=== PATIENT | male | born 1965 | race American Indian/Alaskan Native ===

== ENCOUNTER 2019-08-21 14:20 | Inpatient (IN) | payer OTHER ==
--- NOTE | 2019-08-21 17:37 | Cat Scan Report ---
CT ABDOMEN AND PELVIS WITHOUT CONTRAST HISTORY: abd pain. COMPARISON: None. TECHNIQUE: CT images of the abdomen and pelvis were obtained without administration of intravenous co ntrast. All CT scans at this location are performed using CT dose reduction for ALARA by means of au tomated exposure control. FINDINGS: Lungs/bones: Calcified granuloma in the right lung base. Mild degenerative changes in the spine and pelvis with no acute osseous abnormality identified. Abdomen/pelvis: The prostate is enlarged and indents the bladder base. The bladder is distended with small diverticula anteriorly and left of midline, one of which contains tiny stones (for example see image 149 of series 2) suggesting long-standing urinary stasis. There is also mild to moderate bilat eral hydronephrosis. The kidneys otherwise appear unremarkable. There is cholelithiasis without clear evidence of cholecystitis. The liver, spleen, pancreas, adrenal s, and proximal GI tract appear unremarkable. No pelvic free fluid or acute colonic abnormality identified. IMPRESSION: 1. Findings of urinary outlet obstruction as outlined above with grossly enlarged and heterogeneous p rostate indenting the bladder base, distended urinary bladder, and moderate bilateral hydronephrosis. Signer Name: Joshua Christian MD Signed: 08/21/2019 5:33 PM Workstation Name: [id number]
[2019-08-21 18:33] LABS: Basophils % (Auto) 0.2 % (0.0-1.8); Eosinophils # (Auto) 0.1 K/mm3 (0.0-0.4); Eosinophils % (Auto) 0.8 % (0.0-4.3); Hematocrit 43.6 % (35.5-45.6); Hemoglobin 14.9 gm/dl (11.8-15.2); Lymphocytes # (Auto) 0.7 K/mm3 (1.2-5.4); Lymphocytes % (Auto) 9.2 % (13.4-35.0); Mean Corpuscular HGB Conc 34 % (32-34); Mean Corpuscular Volume 89 fl (84-94); Monocytes # (Auto) 0.5 K/mm3 (0.0-0.8); Monocytes % (Auto) 5.7 % (0.0-7.3); Platelet Count 222 K/mm3 (140-440); Red Blood Count 4.91 M/mm3 (3.65-5.03); Red Cell Distribution Width 13.4 % (13.2-15.2)
[2019-08-21 18:58] LABS: Albumin 4.7 g/dL (3.9-5); Calcium 9.6 mg/dL (8.4-10.2)
[2019-08-21] MEDS ORDERED: SODIUM CHLORIDE 0.9% 1000 ML 2,000 ML IV ONE (19:59)
--- NOTE | 2019-08-21 20:03 | Emergency Department Report ---
<BHAVIK FOX - Last Filed: 08/21/19 20:00> ED Abdominal Pain HPI - General Chief Complaint: Abdominal Pain Stated Complaint: BOWEL BLOCKAGE/ABD SWELLING Time Seen by Provider: 08/21/19 20:02 Source: patient Mode of arrival: Ambulatory Limitations: No Limitations - History of Present Illness MD Complaint: abdominal pain - Related Data Allergies Allergy/AdvReac Type Severity Reaction Status Date / Time acetaminophen AdvReac Intermediate Unknown Verified 08/21/19 19:59 [From Tylenol-Codeine #3] codeine AdvReac Intermediate Unknown Verified 08/21/19 19:59 [From Tylenol-Codeine #3] ED Past Medical Hx - Social History Smoking Status: Never Smoker Substance Use Type: Alcohol ED Physical Exam - General Limitations: No Limitations ED Medical Decision Making - Lab Data Result diagrams: 08/21/19 18:23 08/21/19 18:23 - Radiology Data Radiology results: report reviewed Patient: JACKSON GUZMÁN MR#: [id number] : 1965 Acct:[id number] Age/Sex: 54 / M ADM Date: 08/21/19 Loc: ED Attending Dr: Ordering Physician: RAFIQ GUTHRIE Date of Service: 08/21/19 Procedure(s): CT abdomen pelvis wo [facility] Accession Number(s): [id number] cc: RAFIQ GUTHRIE CT ABDOMEN AND PELVIS WITHOUT CONTRAST HISTORY: abd pain. COMPARISON: None. TECHNIQUE: CT images of the abdomen and pelvis were obtained without administration of intravenous contrast. All CT scans at this location are performed using CT dose reduction for ALARA by means of automated exposure control. FINDINGS: Lungs/bones: Calcified granuloma in the right lung base. Mild degenerative changes in the spine and pelvis with no acute osseous abnormality identified. Abdomen/pelvis: The prostate is enlarged and indents the bladder base. The bladder is distended with small diverticula anteriorly and left of midline, one of which contains tiny stones (for exampl e see image 149 of series 2) suggesting long-standing urinary stasis. There is also mild to moderate bilateral hydronephrosis. The kidneys otherwise appear unremarkable. There is cholelithiasis without clear evidence of cholecystitis. The liver, spleen, pancreas, adrenals, and proximal GI tract appear unremarkable. No pelvic free fluid or acute colonic abnormality identified. IMPRESSION: 1. Findings of urinary outlet obstruction as outlined above with grossly enlarged and heterogeneous prostate indenting the bladder base, distended urinary bladder, and moderate bilateral hydronephrosis. Signer Name: Joshua Christian MD Signed: 08/21/2019 5:33 PM Workstation Name: [id number] Transcribed By: GREGORIA Dictated By: Joshua Christian MD Electronically Authenticated By: Joshua Christian MD Signed Date/Time: 08/21/191732 DD/ 29 TD/TT: ED Disposition Clinical Impression: Obstructive nephropathy due to benign prostatic hyperplasia Prostatitis Qualifiers: Prostatitis type: unspecified Qualified Code(s): N41.9 - Inflammatory disease of prostate, unspecified Acute renal failure Qualifiers: Acute renal failure type: unspecified Qualified Code(s): N17.9 - Acute kidney failure, unspecified Hydronephrosis Qualifiers: Hydronephrosis type: other Qualified Code(s): N13.39 - Other hydronephrosis Disposition: OP ADMIT IP TO THIS HOSP Condition: Critical <CHINMAY JOHNSON III - Last Filed: 08/22/19 03:42> ED Abdominal Pain HPI - General Source: patient Mode of arrival: Ambulatory Limitations: No Limitations - History of Present Illness Initial Comments: Patient is a 54-year-old male that presents emergency room with complaints of abdominal pain. Patient states his symptoms started 2 weeks ago. Patient states he thinks he has a bowel obstruction. Patient states he is having difficulties having bowel movements. Patient states he had a bowel movement yes terday. Patient rates his pain as a 8 out of 10. Pain states pain is better with rest and worse with palpation and movement. Patient denies dysuria. Patient states he is able to urinate without difficulties. Patient denies recent travel. Patient denies recent international travel. Patient denies exposure to the novel coronavirus. Patient denies sick contacts. Patient denies fever and chills. Patient denies cough. Patient denies diarrhea. Patient denies coming in contact with anybody with symptoms of the novel coronavirus. Complaint: abdominal pain -: Sudden Location: diffuse Radiation: back Migration to: no migration Quality: aching Consistency: constant Improves With: nothing Worsens With: nothing Associated Symptoms: constipation. denies: nausea, vomiting, diarrhea, fever, chills, dysuria, hematemesis, hematochezia, melena, hematuria, anorexia, syncope ED Review of Systems ROS: Stated complaint: BOWEL BLOCKAGE/ABD SWELLING Other details as noted in HPI Constitutional: denies: chills, fever Eyes: denies: eye pain, eye discharge, vision change ENT: denies: ear pain, throat pain Respiratory: denies: cough, shortness of breath, wheezing Cardiovascular: denies: chest pain, palpitations Endocrine: no symptoms reported Gastrointestinal: abdominal pain, constipation. denies: nausea, diarrhea Genitourinary: denies: urgency, dysuria Musculoskeletal: denies: back pain, joint swelling, arthralgia Skin: denies: rash, lesions Neurological: denies: headache, weakness, paresthesias Psychiatric: denies: anxiety, depression Hematological/Lymphatic: denies: easy bleeding, easy bruising ED Past Medical Hx - Past Medical History Previous Medical History?: Yes - Surgical History Past Surgical History?: No - Family History Family history: no significant - Social History Smoking Status: Never Smoker Substance Use Type: Alcohol ED Physical Exam - General Limitations: No Limitations General appearance: alert, in no apparent distress - Head Head exam: Present: atraumatic, normocephalic - Eye Eye exam: Present: normal appearance - ENT ENT exam: Present: mucous membranes moist - Neck Neck exam: Present: normal inspection - Respiratory Respiratory exam: Present: normal lung sounds bilaterally. Absent: respiratory distress - Cardiovascular Cardiovascular Exam: Present: regular rate, normal rhythm. Absent: systolic murmur, diastolic murmur, rubs, gallop - GI/Abdominal GI/Abdominal exam: Present: soft, distended, tenderness, normal bowel sounds - Rectal Rectal exam: Present: deferred - Extremities Exam Extremities exam: Present: normal inspection - Back Exam Back exam: Present: normal inspection - Neurological Exam Neurological exam: Present: alert, oriented X3 - Psychiatric Psychiatric exam: Present: normal affect, normal mood - Skin Skin exam: Present: warm, dry, intact, normal color. Absent: rash ED Course Vital Signs 08/21/19 08/21/19 08/21/19 14:24 15:42 21:43 Temperature 97.5 F L Pulse Rate 80 Respiratory 20 18 20 Rate Blood Pressure 175/110 Blood Pressure [Left] O2 Sat by Pulse 100 99 Oximetry 08/21/19 22:30 Temperature 98.1 F Pulse Rate 78 Respiratory 16 Rate Blood Pressure Blood Pressure 159/88 [Left] O2 Sat by Pulse 98 Oximetry - Reevaluation(s) Reevaluation #1: Patient initially seen in our fast track area by our physician assistant portfolio manager. Care was transferred to wi. I assessed the patient in room 37. Initial exam done. Patient found to have generalized tenderness to the abdomen along with a palpable bladder. 08/21/19 20:02 Reevaluation #2: I did a bedside ultrasound which showed a dilated bladder. Patient voided just prior to ultrasound. Cysto cart order. 08/21/19 21:01 Reevaluation #3: Patient had an 18 Jamaican coud placed with minimal resistance. Patient had a liter out within 1 minute. Patient clamped off we will open the Fraser back up and approximately 30 minutes to prevent bladder spasm. Patient given 1 mg of Dilaudid for discomfort. 08/21/19 21:23 Reevaluation #4: Patient drained 2500 cc of clear urine. Patient has finished 2 L of normal saline bolus and the nurse has hung his third liter. Patient states the pain has improved. Patient's abdomen is now soft and nondistended. I discussed all results with patient. I discussed plan of care with patient. Patient agrees with plan of care and admission. Patient to be admitted to the hospitalist service. 08/21/19 21:33 - Consultations Consultation #1: Hospitalist consulted for admission. Hospitalist to admit patient. Bridge orders placed. 08/21/19 21:33 - Procedure Description Procedures done: Ultrasound done. A post void ultrasound done and it shows a dilated bladder. Patient will have a Fraser placed. I have ordered a cystoscopy cart. - Catheter Insertion (Urinary) Indications: to alleviate urinary retention Prophylactic Antibiotics Given: Yes Bladder Scan/US before Catherization: Yes Preparation: Providone-Iodine Type of Catheter Inserted: coude tip Catheter Jamaican Size: 18 Catheter Balloon Size (mls): 10 Topical Anesthesia Used: No Results: successfully catherized-immediate flow, ultrasound used for placement verification, urine sent for UA/ C&S Patient Tolerated Procedure: well, no complications Complications: none ED Medical Decision Making - Lab Data Result diagrams: 08/22/19 01:29 08/22/19 01:29 - Radiology Data Radiology results: report reviewed, image reviewed - Medical Decision Making Patient is a 54-year-old male that presents emergency room with complaints of abdominal pain x2 weeks. Patient's stated he was constipated and believes he has a obstruction. Patient initially evaluated by our midlevel. Patient care was then transferred to wi early in his ER stay. Patient evaluated and found to have a palpable bladder on exam. Patient while in ER voided without difficulties and had a ultrasound done which showed a dilated bladder. Patient then had a urinary catheter placed with an 18 Jamaican coud under ultrasound and patient had an immediate drainage of a liter, the Fraser was clamped for period of time to prevent bladder spasm. Patient was given Dilaudid for discomfort. Patient given IV fluids. Patient had labs done which showed acute renal failure. Patient has no past medical history or history of kidney disease. Patient CT was done and reviewed. Patient CT showed bilateral hydronephrosis from with a urinary bladder outlet obstruction. Because of the CT findings the patient had a urinary catheter placed. - Differential Diagnosis obstructive nephropathy 2/2 BPH, prostatitis, abd pain.. sbo Critical Care Time: Yes Critical care time in (mins) excluding proc time.: 45 Critical care attestation.: If time is entered above; I have spent that time in minutes in the direct care of this critically ill patient, excluding procedure time. Critical Care Time: 45 minutes ED Disposition Is pt being admited?: Yes Does the pt Need Aspirin: No Time of Disposition: 21:28
[2019-08-21] MEDS ORDERED: CEFEPIME/NS 2 GM/100 ML 2 GM/100 ML BAG IV ONE (20:33)
[2019-08-21 20:47] LABS: Bilirubin,Urine NEG (Negative); Blood,Urine NEG (Negative); Color,Urine Yellow (Yellow); Protein,Urine <15 mg/dL mg/dL (Negative); Urobilinogen,Urine < 2.0 mg/dL (<2.0)
[2019-08-21] MEDS ORDERED: HYDROmorphone 1 MG/1 ML INJ ONE (21:18)
[2019-08-21] MEDS ORDERED: HYDROmorphone 1 MG/1 ML INJ IV ONE (21:23)
[2019-08-21] MEDS ORDERED: SODIUM CHLORIDE 0.9% 1000 ML 1,000 ML ONE (22:46)
--- NOTE | 2019-08-21 23:43 | History and Physical Report ---
History of Present Illness Date of examination: 08/21/19 Date of admission: 08/21/19 21:30 Chief complaint: Lower abdominal pain for 2 weeks History of present illness: Patient 54-year-old male comes in for lower abdominal pain of 2 weeks duration. No significant past medical history. Is having problem with micturition. Unable to urinate for the last 48 hours. Patient also says that he is constipated. No bowel movement. No fever or chills. No exposure to coronavirus patients. No cough or fever. Abdominal pain is about 6 on a scale of 1-10 dull to sharp. Patient was told that he had a high PSA by his PCP and was asked to follow-up with urology but never followed with urology. Patient is not on Flomax or Proscar. He was not prescribed any Flomax or Proscar by his PCP. The PCP was relying on his follow-up with urology which he was noncompliant. Past Medical History hypertension but not on any medicines Surgical History Past Surgical History?: No Family History Family history: no significant Social History Smoking Status: Never Smoker Substance Use Type: Alcohol Review of Systems ROS: Constitutional no weight loss or weight gain no fever or chills HEENT no sore throat no post nasal drip no diplopia Neck no neck stiffness no lymph gland enlargement Chest and lungs no shortness of breath cough or wheezing CVS no chest pain no diaphoresis no palpitations GI no nausea no vomiting no diarrhea, constipation present. Genitourinary system no abdominal pain. No urination. Musculoskeletal system no muscle pains no joint pains [employer]GET[employer] no syncope no seizures Skin no rash no itching Psychiatric no depression no homicidal or suicidal tendencies Hematologic no lymphedema or bruising Endocrine no polydipsia no polyuria no cold intolerance no heat intolerance Medications and Allergies Allergies Allergy/AdvReac Type Severity Reaction Status Date / Time acetaminophen AdvReac Intermediate Unknown Verified 08/21/19 19:59 [From Tylenol-Codeine #3] codeine AdvReac Intermediate Unknown Verified 08/21/19 19:59 [From Tylenol-Codeine #3] Exam - Constitutional Vitals: Temp Pulse Resp BP Pulse Ox 98.1 F 78 16 159/88 98 08/21/19 22:30 08/21/19 22:30 08/21/19 22:30 08/21/19 22:30 08/21/19 22:30 General appearance: Present: no acute distress, well-nourished - EENT Eyes: Present: PERRL ENT: hearing intact, clear oral mucosa - Neck Neck: Present: supple, normal ROM - Respiratory Respiratory effort: normal Respiratory: bilateral: CTA - Cardiovascular Heart rate: 78 Heart Sounds: Present: S1 & S2. Absent: rub, click - Extremities Extremities: no ischemia, pulses intact, pulses symmetrical, No edema Peripheral Pulses: within normal limits - Abdominal General gastrointestinal: Present: soft, tender, distended (Tender suprapubic region), normal bowel sounds Male genitourinary: Present: normal - Rectal Rectal Exam: stool brown - Integumentary Integumentary: Present: clear, warm, dry - Musculoskeletal Musculoskeletal: gait normal, strength equal bilaterally - Psychiatric Psychiatric: appropriate mood/affect, intact judgment & insight - Neurologic Neurologic: CNII-XII intact, moves all extremities - Allied Health Allied health notes reviewed: nursing, case management Results - Labs CBC & Chem 7: 08/22/19 01:29 08/22/19 01:29 Labs: Laboratory Last Values WBC 8.1 K/mm3 (4.5-11.0) 08/21/19 18:23 RBC 4.91 M/mm3 (3.65-5.03) 08/21/19 18:23 Hgb 14.9 gm/dl (11.8-15.2) 08/21/19 18:23 Hct 43.6 % (35.5-45.6) 08/21/19 18:23 MCV 89 fl (84-94) 08/21/19 18:23 MCH 30 pg (28-32) 08/21/19 18:23 MCHC 34 % (32-34) 08/21/19 18:23 RDW 13.4 % (13.2-15.2) 08/21/19 18:23 Plt Count 222 K/mm3 (140-440) 08/21/19 18:23 Lymph % (Auto) 9.2 % (13.4-35.0) L 08/21/19 18:23 Tillman % (Auto) 5.7 % (0.0-7.3) 08/21/19 18:23 Eos % (Auto) 0.8 % (0.0-4.3) 08/21/19 18:23 Baso % (Auto) 0.2 % (0.0-1.8) 08/21/19 18:23 Lymph # 0.7 K/mm3 (1.2-5.4) L 08/21/19 18:23 Tillman # 0.5 K/mm3 (0.0-0.8) 08/21/19 18:23 Eos # 0.1 K/mm3 (0.0-0.4) 08/21/19 18: Baso # 0.0 K/mm3 (0.0-0.1) 08/21/19 18:23 Seg Neutrophils % 84.1 % (40.0-70.0) H 08/21/19 18:23 Seg Neutrophils # 6.8 K/mm3 (1.8-7.7) 08/21/19 18:23 Sodium 138 mmol/L (137-145) 08/21/19 18:23 Potassium 4.4 mmol/L (3.6-5.0) 08/21/19 18:23 Chloride 100.3 mmol/L (98-107) 08/21/19 18:23 Carbon Dioxide 21 mmol/L (22-30) L 08/21/19 18:23 Anion Gap 21 mmol/L 08/21/19 18:23 BUN 33 mg/dL (9-20) H 08/21/19 18:23 Creatinine 5.9 mg/dL (0.8-1.5) H 08/21/19 18:23 Estimated GFR 12 ml/min 08/21/19 18:23 BUN/Creatinine Ratio 6 % 08/21/19 18:23 Glucose 110 mg/dL (75-100) H 08/21/19 18:23 Calcium 9.6 mg/dL (8.4-10.2) 08/21/19 18:23 Total Bilirubin 0.40 mg/dL (0.1-1.2) 08/21/19 18:23 AST 23 units/L (5-40) 08/21/19 18:23 ALT 20 units/L (7-56) 08/21/19 18:23 Alkaline Phosphatase 59 units/L (35-129) 08/21/19 18:23 Total Protein 7.7 g/dL (6.3-8.2) 08/21/19 18: Albumin 4.7 g/dL (3.9-5) 08/21/19 18:23 Albumin/Globulin Ratio 1.6 % 08/21/19 18:23 Urine Color Yellow (Yellow) 08/21/19 20:30 Urine Turbidity Clear (Clear) 08/21/19 20:30 Urine pH 5.0 (5.0-7.0) 08/21/19 20:30 Ur Specific [place] 1.009 (1.003-1.030) 08/21/19 20:30 Urine Protein <15 mg/dl mg/dL (Negative) 08/21/19 20:30 Urine Glucose (UA) Neg mg/dL (Negative) 08/21/19 20:30 Urine Ketones Neg mg/dL (Negative) 08/21/19 20:30 Urine Blood Neg (Negative) 08/21/19 20:30 Urine Nitrite Neg (Negative) 08/21/19 20:30 Urine Bilirubin Neg (Negative) 08/21/19 20:30 Urine Urobilinogen < 2.0 mg/dL (<2.0) 08/21/19 20:30 Ur Leukocyte Esterase Neg (Negative) 08/21/19 20:30 Urine WBC (Auto) 5.0 /HPF (0.0-6.0) 08/21/19 20:30 Urine RBC (Auto) 1.0 /HPF (0.0-6.0) 08/21/19 20:30 U Epithel Cells (Auto) < 1.0 /HPF (0-13.0) 08/21/19 20:30 Short CBC 08/21/19 Range/Units 18:23 WBC 8.1 (4.5-11.0) K/mm3 Hgb 14.9 (11.8-15.2) gm/dl Hct 43.6 (35.5-45.6) % Plt Count 222 (140-440) K/mm3 BMP 08/21/19 18:23 Sodium 138 Potassium 4.4 Chloride 100.3 Carbon Dioxide 21 L BUN 33 H Creatinine 5.9 H Glucose 110 H Calcium 9.6 Liver Function 08/21/19 Range/Units 18:23 Total Bilirubin 0.40 (0.1-1.2) mg/dL AST 23 (5-40) units/L ALT 20 (7-56) units/L Alkaline Phosphatase 59 (35-129) units/L Albumin 4.7 (3.9-5) g/dL Urine 08/21/19 Range/Units 20:30 Urine Color Yellow (Yellow) Urine pH 5.0 (5.0-7.0) Ur Specific [place] 1.009 (1.003-1.030) Urine Protein <15 mg/dl (Negative) mg/dL Urine Glucose (UA) Neg (Negative) mg/dL - Imaging and Cardiology CT scan - abdomen: report reviewed Imaging and Cardiology: CT abdomen Abdomen/pelvis: The prostate is enlarged and indents the bladder base. The bladder is distended with small diverticula anteriorly and left of midline, one of which contains tiny stones (for exampl e see image 149 of series 2) suggesting long-standing urinary stasis. There is also mild to moderate bilateral hydronephrosis. The kidneys otherwise appear unremarkable. There is cholelithiasis without clear evidence of cholecystitis. The liver, spleen, pancreas, adrenals, and proximal GI tract appear unremarkable. No pelvic free fluid or acute colonic abnormality identified. IMPRESSION: 1. Findings of urinary outlet obstruction as outlined above with grossly enlarged and heterogeneous prostate indenting the bladder base, distended urinary bladder, and moderate bilateral hydronephrosis. Signer Name: Joshua Christian MD Signed: 08/21/2019 5:33 PM Workstation Name: [id number] Fraser/IV: IV Catheter Type [Left Distal INT / Saline Lock Port Antecubital] Assessment and Plan Advance Directives: Yes (Full code) VTE prophylaxis?: Chemical Plan of care discussed with patient/family: Yes - Patient Problems (1) Acute kidney injury Current Visit: Yes Status: Acute Plan to address problem: Secondary to outlet obstruction due to prostate enlargement which can be malignancy or benign prostate enlargement PSA ordered Cardiac catheter could be inserted IV fluids for now Nephrology consult ATN (2) Obstructive nephropathy due to benign prostatic hyperplasia Current Visit: Yes Status: Acute Plan to address problem: Secondary to BPH versus benign prostate hypertrophy Urology consult requested (3) BPH (benign prostatic hyperplasia) Current Visit: Yes Status: Chronic Qualifiers: Lower urinary tract symptom presence: symptoms present Lower urinary tract symptom detail: straining on urination Qualified Code(s): N40.1 - Benign prostatic hyperplasia with lower urinary tract symptoms; R39.16 - Straining to void Plan to address problem: Patient has symptoms of BPH for a long time but did not seek attention with a urologist (4) DVT prophylaxis Current Visit: Yes Status: Acute Plan to address problem: On heparin and GI prophylaxis
[2019-08-22] MEDS ORDERED: ONDANSETRON 4 MG/2 ML INJ IV PRN (00:10)
[2019-08-22] MEDS ORDERED: HYDROmorphone 1 MG/1 ML INJ IV PRN (00:10)
[2019-08-22] MEDS ORDERED: oxyCODONE /ACETAMINOPHEN 5-325MG TAB PO PRN (00:10)
[2019-08-22] MEDS ORDERED: ACETAMINOPHEN 325 MG TAB PO PRN (00:10)
[2019-08-22] MEDS ORDERED: D5W/0.9% NACL 1,000 ML IV SCH (01:00)
[2019-08-22 01:40] LABS: Basophils % (Auto) 0.2 % (0.0-1.8); Eosinophils # (Auto) 0.1 K/mm3 (0.0-0.4); Eosinophils % (Auto) 0.9 % (0.0-4.3); Hematocrit 42.1 % (35.5-45.6); Hemoglobin 14.4 gm/dl (11.8-15.2); Lymphocytes # (Auto) 0.9 K/mm3 (1.2-5.4); Lymphocytes % (Auto) 14.3 % (13.4-35.0); Mean Corpuscular HGB Conc 34 % (32-34); Mean Corpuscular Volume 88 fl (84-94); Monocytes # (Auto) 0.5 K/mm3 (0.0-0.8); Monocytes % (Auto) 7.6 % (0.0-7.3); Platelet Count 206 K/mm3 (140-440); Red Blood Count 4.78 M/mm3 (3.65-5.03); Red Cell Distribution Width 13.1 % (13.2-15.2)
[2019-08-22 02:03] LABS: Albumin 4.4 g/dL (3.9-5); Calcium 9.1 mg/dL (8.4-10.2)
[2019-08-22] MEDS ORDERED: FAMOTIDINE 20 MG/2 ML INJ IV SCH (10:00)
--- NOTE | 2019-08-22 10:24 | Consultation ---
History of Present Illness - Reason for Consult Consult date: 08/22/19 - History of Present Illness Lower abdominal pain for 2 weeks History of present illness: Patient 54-year-old male comes in for lower abdominal pain of 2 weeks duration. No significant past medical history. Is having problem with micturition. Unable to urinate for the last 48 hours. Patient also says that he is constipated. No bowel movement. No fever or chills. No exposure to coronavirus patients. No cough or fever. Abdominal pain is about 6 on a scale of 1-10 dull to sharp. Patient was told that he had a high PSA by his PCP and was asked to follow-up with urology but never followed with urology. Patient is not on Flomax or Proscar. He was not prescribed any Flomax or Proscar by his PCP. The PCP was relying on his follow-up with urology which he was noncompliant. PCP-- Dr. Vanna Moe CT- retention, mild hydronephrosis Fraser now nurse states draining and no pain BPH RETENTION Spoke with pt Home with Fraser -- big bag & leg bag Flomax 1qd - f/u 2wks-- fill / flow reviewed chart via portal & discussed with pt, nurse, & Dr. Gurrola Medications and Allergies Allergies Allergy/AdvReac Type Severity Reaction Status Date / Time acetaminophen AdvReac Intermediate Unknown Verified 08/21/19 19:59 [From Tylenol-Codeine #3] codeine AdvReac Intermediate Unknown Verified 08/21/19 19:59 [From Tylenol-Codeine #3] Active Meds: Active Medications Acetaminophen (Tylenol) 650 mg PO Q4H PRN PRN Reason: Pain MILD(1-3)/Fever >100.5/NEWELL Famotidine (Pepcid) 20 mg IV QAM [facility] Last Admin: 08/22/19 09:35 Dose: 20 mg Documented by: Hydromorphone HCl (Dilaudid) 0.5 mg IV Q3H PRN PRN Reason: Pain , Severe (7-10) Dextrose/Sodium Chloride (D5ns) 1,000 mls @ 100 mls/hr IV DIRECT [facility] Last Admin: 08/22/19 04:51 Dose: 100 mls/hr Documented by: Ondansetron HCl (Zofran) 4 mg IV Q8H PRN PRN Reason: Nausea And Vomiting Oxycodone/Acetaminophen (Percocet 5/325) 1 tab PO Q6H PRN PRN Reason: Pain, Moderate (4-6) Sodium Chloride (Sodium Chloride Flush Syringe 10 Ml) 10 ml IV BID [facility] Last Admin: 08/22/19 09:36 Dose: 10 ml Documented by: Sodium Chloride (Sodium Chloride Flush Syringe 10 Ml) 10 ml IV PRN PRN PRN Reason: LINE FLUSH Exam - Constitutional Vitals: Temp Pulse Resp BP Pulse Ox 98.1 F 72 18 143/89 100 08/22/19 08:14 08/22/19 08:14 08/22/19 08:14 08/22/19 08:14 08/22/19 08:14 Results - Labs CBC & Chem 7: 08/22/19 01:29 08/22/19 01:29 Labs: Abnormal lab results 08/21/19 08/21/19 08/22/19 Range/Units 18:23 18:23 01:29 RDW 13.1 L (13.2-15.2) % Lymph % (Auto) 9.2 L (13.4-35.0) % Emanuel % (Auto) 7.6 H (0.0-7.3) % Lymph # 0.7 L 0.9 L (1.2-5.4) K/mm3 Seg Neutrophils % 84.1 H 77.0 H (40.0-70.0) % Chloride (98-107) mmol/L Carbon Dioxide 21 L (22-30) mmol/L BUN 33 H (9-20) mg/dL Creatinine 5.9 H (0.8-1.5) mg/dL Glucose 110 H (75-100) mg/dL Prostate Specific Ag (0.00-4.00) ng/mL 08/22/19 08/22/19 Range/Units 01:29 01:29 RDW (13.2-15.2) % Lymph % (Auto) (13.4-35.0) % Emanuel % (Auto) (0.0-7.3) % Lymph # (1.2-5.4) K/mm3 Seg Neutrophils % (40.0-70.0) % Chloride 108.0 H (98-107) mmol/L Carbon Dioxide (22-30) mmol/L BUN 31 H (9-20) mg/dL Creatinine 4.7 H (0.8-1.5) mg/dL Glucose 104 H (75-100) mg/dL Prostate Specific Ag 98.03 H (0.00-4.00) ng/mL
--- NOTE | 2019-08-22 10:31 | Discharge Summary ---
Providers - Providers Date of Admission: 08/21/19 21:30 Date of discharge: 08/22/19 Attending physician: ROSHNI STEPHENS 08/22/19 00:10 Consult to Physician [CONS] Routine Comment: Consulting Provider: PAMELA CAMPBELL Physician Instructions: Reason For Exam: Acute renal failure 08/22/19 00:18 Consult to Physician [CONS] Routine Comment: Consulting Provider: OBEY TAMEZ Physician Instructions: Reason For Exam: Bladder outlet obstruction Primary care physician: HAZEL NOVOA Hospitalization Condition: Good Hospital course: 54-year-old male presents with lower abdominal pain x2 weeks unable to void. Constipated. Patient had elevated PSA was scheduled to follow-up with urologist did not follow-up. Upon presentation CT scan showed enlarged prostate bladder outlet obstruction. Patient renal function was compromised with BUN/creatinine 33/5.9. Corrected significantly with catheter placement. Patient stable for discharge. Leave catheter in follow-up with Dr. Tamez in 2 weeks. Disposition: - TO HOME OR SELFCARE - Discharge Diagnoses (1) Acute kidney injury Status: Acute Comment: Acute kidney injury secondary to obstructive uropathy. Still will also need to rule out malignancy with elevated PSA. Patient to keep Fraser catheter in. (2) Hydronephrosis Status: Acute Qualifiers: Hydronephrosis type: other Qualified Code(s): N13.39 - Other hydronephrosis Comment: Secondary to BPH. Patient be given Flomax. Antibiotics discharge follow-up urinary catheter Dr. Tamez 2 weeks. (3) Obstructive nephropathy due to benign prostatic hyperplasia Status: Acute Core Measure Documentation - Palliative Care Palliative Care/ Comfort Measures: Not Applicable - Core Measures Any of the following diagnoses?: none Exam - Constitutional Vitals: Temp Pulse Resp BP Pulse Ox 98.1 F 72 18 143/89 100 08/22/19 08:14 08/22/19 08:14 08/22/19 08:14 08/22/19 08:14 08/22/19 08:14 General appearance: Present: no acute distress, well-nourished - EENT Eyes: Present: PERRL ENT: hearing intact, clear oral mucosa - Neck Neck: Present: supple, normal ROM - Respiratory Respiratory effort: normal Respiratory: bilateral: CTA - Cardiovascular Heart Sounds: Present: S1 & S2. Absent: rub, click - Extremities Extremities: pulses symmetrical, No edema Peripheral Pulses: within normal limits - Abdominal General gastrointestinal: Present: soft, non-tender, non-distended, normal bowel sounds Male genitourinary: Present: normal - Integumentary Integumentary: Present: clear, warm, dry - Musculoskeletal Musculoskeletal: gait normal, strength equal bilaterally - Psychiatric Psychiatric: appropriate mood/affect, intact judgment & insight - Neurologic Neurologic: CNII-XII intact, moves all extremities Plan Activity: no restrictions Weight Bearing Status: Full Weight Bearing Diet: regular Follow up with: HAZEL NOVOA MD [Primary Care Provider] - 3-5 Days Prescriptions: oxyCODONE /ACETAMINOPHEN [Percocet 5/325 mg] 1 tab PO Q6H PRN #14 tablet PRN Reason: Pain, Moderate (4-6)
[2019-08-22 13:06] VITALS: BP 150/80
--- NOTE | 2019-08-22 15:12 | Consultation ---
History of Present Illness - Reason for Consult Consult date: 08/22/19 acute renal failure Requesting physician: ROSHNI STEPHENS - History of Present Illness 54-year-old male with a history of hypertension increased PSA who is seeing Dr. Tamez. Presents on account of 2-week history of lower abdominal pain with constipation. Patient also admits to some nausea and vomiting. He admitted to urinary hesitancy and poor stream. No dysuria or hematuria. On presentation, BUN/creatinine were elevated at 33/5.9 mg/dL. I am asked consulted to assist with managing this. CT scan showed enlarged prostate with bladder outlet obstruction. Fraser's catheter was inserted with more than 900 mils of urine obtained. Urology was consulted and patient had a Fraser catheter inserted. Plan is to follow-up with urologist as an outpatient in 2 weeks. Past History Past Medical History: hypertension Past Surgical History: hernia repair (as a child) Social history: Lives alone, other (driver operator). denies: smoking, alcohol abuse, prescription drug abuse, IV drug use Family history: cancer (Mother of pancreatic cancer at age 83.), other (Father of complications of emphysema in his 60s.) Medications and Allergies Allergies Allergy/AdvReac Type Severity Reaction Status Date / Time acetaminophen AdvReac Intermediate Unknown Verified 08/21/19 19:59 [From Tylenol-Codeine #3] codeine AdvReac Intermediate Unknown Verified 08/21/19 19:59 [From Tylenol-Codeine #3] Home Medications Medication Instructions Recorded Confirmed Last Taken Type Tamsulosin [Flomax] 0.4 mg PO QDAY #14 cap 08/22/19 Unknown Rx levoFLOXacin [Levaquin TAB] 500 mg PO QDAY #7 tablet 08/22/19 Unknown Rx oxyCODONE /ACETAMINOPHEN [Percocet 1 tab PO Q6H PRN #14 tablet 08/22/19 Unknown Rx 5/325 mg] Review of Systems All systems: negative (Constitutional: no fever admits tor chills. No anorexia or weight loss. HEENT: No sore throat but admits tosinus drainage no hearing or vision impairment . Cardiovascular: No chest pain, shortness of breath, palpitations, lower extremity swelling or dizziness. Respiratory: No cough, sp utum, shortness of breath, hemoptysis or wheezing. Gastrointestinal: No nausea, vomiting, diarrhea, aDMITS to abdominal pain and constipation, hematemesis or melena. Genitourinary: No frequency urgency dysuria or hematuria. hematologic: No abnormal bleeding or bruising. Developed hematuria after Fraser catheter was inserted integumentary: no pruritus or rash. Neurological: Admits to dizzines and headache no focal weakness or numbness, no syncope or seizures. Musculoskeletal: Admits to joint pains and stiffness. Psychiatry: no anxiety or depression) Exam - Vital Signs Vital signs: Vital Signs Temp Pulse Resp BP Pulse Ox 97.5 F L 80 20 175/110 100 08/21/19 14:24 08/21/19 14:24 08/21/19 14:24 08/21/19 14:24 08/21/19 14:24 - Physical Exam Narrative exam: Middle-aged -Nepalese male lying in bed in no acute distress HEENT: NCAT, pink oral mucous membrane Neck: Supple, no venous distention CVS: S1S2 RRR with no murmur, rub or gallop Chest: Clear to auscultation Abdomen: Protuberant, soft, nontender, no organomegaly, bowel sounds are present Extremities: No edema Neuro: Awake, alert no focal deficits Results - Lab Results 08/22/19 01:29 08/22/19 01:29 Most recent lab results Calcium 9.1 mg/dL (8.4-10.2) 08/22/19 01:29 Assessment and Plan - Patient Problems (1) Acute kidney injury Status: Acute Plan to address problem: Acute kidney injury secondary to obstructive uropathy secondary to enlarged prostate. Status post relief of obstruction. Kidney function is improving. Patient is being discharged home. Will need to follow-up labs on Saturday this week and schedule Teleisit to see me next week. (2) Chronic kidney disease, unspecified Status: Acute Plan to address problem: Suspect patient has baseline chronic kidney disease stage III of 4. 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 Old records are not available for review. Will get records as an outpatient and follow-up kidney function. (3) Hypertensive chronic kidney disease with stage 1 through stage 4 chronic kidney disease, or unspecified chronic kidney disease Status: Acute Plan to address problem: Follow blood pressure. May need to start medication if consistently high. For now keep to low-sodium diet (4) Obstructive nephropathy due to benign prostatic hyperplasia Status: Acute Plan to address problem: Status post relief of obstruction by urology. Follow-up with urologist as an outpatient.
== END 2019-08-22 14:40 | disposition home or self-care (01) | DRG 725 ==
LOC: ED 14:20 → 4A 21:30
PROVIDERS: ADMIT Internal Medicine; ATTEND Internal Medicine
PROC: 0T9B70Z Drainage of Bladder with Drainage Device, Via Natural or Artificial Opening (ICD-10-PCS; principal; 2019-08-21)
DX: N40.1 Benign prostatic hyperplasia with lower urinary tract symptoms (principal); N17.0 Acute kidney failure with tubular necrosis; N13.8 Other obstructive and reflux uropathy; N13.39 Other hydronephrosis; Z60.2 Problems related to living alone; I12.9 Hypertensive chronic kidney disease with stage 1 through stage 4 chronic kidney disease, or unspecified chronic kidney disease; N18.9 Chronic kidney disease, unspecified; Z80.8 Family history of malignant neoplasm of other organs or systems; Z83.6 Family history of other diseases of the respiratory system; Z88.5 Allergy status to narcotic agent; Z88.1 Allergy status to other antibiotic agents; Z79.899 Other long term (current) drug therapy; Z72.89 Other problems related to lifestyle
CPT/HCPCS: 36415; 74176; 80053; 81001; 83036; 84153; 85025; G0378; J0692; J1170; J7030; J7042

== ENCOUNTER 2019-08-23 18:15 | Emergency (ER) | payer OTHER | END 2019-08-23 19:50 | disposition home or self-care (01) | LOC: ED 18:15 | DX: R31.9 Hematuria, unspecified (principal); I10 Essential (primary) hypertension; N40.0 Benign prostatic hyperplasia without lower urinary tract symptoms; Z87.448 Personal history of other diseases of urinary system; Z79.2 Long term (current) use of antibiotics; Z79.899 Other long term (current) drug therapy; Z88.8 Allergy status to other drugs, medicaments and biological substances ==